=== PATIENT | male | born 1970 | race Caucasian/White ===

== ENCOUNTER 2019-01-17 13:57 | Emergency (ER) | payer OTHER ==
[~2019-01-17] VITALS: Ht 185.4 cm; Wt 90.9 kg
[2019-01-17 14:12] VITALS: BP 140/89
--- NOTE | 2019-01-17 14:15 | NUR ---
PT AMB TO BED 12
[2019-01-17] MEDS ORDERED: KETOROLAC 30 MG/ML VIAL IM ONE (14:25)
--- NOTE | 2019-01-17 14:30 | NUR ---
Ambreen chase in [facility] - 01/17/19 at 1435 by [email or web address] PT AMB TO BED 12
--- NOTE | 2019-01-17 14:43 | NUR ---
X-RAY HAS BEEN COMPLETED.
[2019-01-17 15:31] VITALS: BP 124/76
--- NOTE | 2019-01-17 15:31 | NUR ---
Patient discharged with v/s stable. Written and verbal after care instructions given and explained. Patient alert, oriented and verbalized understanding of instructions. Ambulatory with steady gait. All questions addressed prior to discharge. ID band removed. Patient advised to follow up with PMD. Rx of NAPROXYN given. Patient educated on indication of medication including possible reaction and side effects. Opportunity to ask questions provided and answered.
== END 2019-01-17 15:31 | disposition home or self-care (01) ==
LOC: MED 13:57
DX: S83.92XA Sprain of unspecified site of left knee, initial encounter (principal); X58.XXXA Exposure to other specified factors, initial encounter; Y93.89 Activity, other specified; Y92.89 Other specified places as the place of occurrence of the external cause; Y99.8 Other external cause status
CPT/HCPCS: 29515; 73562; 96372; 99283; J1885; Q0092